=== PATIENT | female | born 1960 | race Caucasian/White ===

== ENCOUNTER 2018-05-09 19:00 | Emergency (ER) | payer SELFPAY ==
[2018-05-09] MEDS ORDERED: BABY ASPIRIN 81 MG CHEW PO ONE (19:26)
--- NOTE | 2018-05-09 19:32 | ERPHSYRPT ---
- History of Present Illness Time Seen by Provider: 05/09/18 19:19 Source: patient Exam Limitations: no limitations Patient Subjective Stated Complaint: Chest pain/Abnormal labs Triage Nursing Assessment: Patient ambulated back to ED and transferred self to bed. Patient A+O X 3. Patient sent to ER after family dr Amee Mott did labs and they were abnormal. Her D Dimer was elevated. Patient complains of chest pain 11/09. Lungs clear a/p mitra. Heart tones audible, Skin pink, warm and dry. Physician History: 58-year-old white female who states that she's been having pain in her anterior chest described as a squeezing located in the upper sternal region associated with shortness of breath and nausea apparently had of been seen by her family doctor and had labs ordered at 5:00 this afternoon. Patient with the above symptoms. Patient with a mildly increased d-dimer of 583. Past medical history includes diverticulitis. Past surgical history includes hysterectomy, colon resection, ostomy with revision Social history occasional alcohol use no illicit drug use no tobacco use Timing/Duration: week(s) (3 weeks) Severity: moderate Modifying Factors: Improves With: nothing Associated Symptoms: nausea, shortness of breath, cough (occasional cough), No vomiting, No abdominal pain, No heartburn, No diaphoresis, No chills, No chest pain, No fever, No headaches, No loss of appetite, No malaise, No rash, No syncope, No seizure, No weakness Allergies/Adverse Reactions: acetaminophen [From Darvocet-N] Allergy (Verified 05/09/18 19:17) propoxyphene [From Darvocet-N] Allergy (Verified 05/09/18 19:17) Home Medications: Aspirin 81 gm Chew [Baby Aspirin 81 mg Chew] 81 mg PO DAILY 05/09/18 [ History] Turmeric Root Extract [Turmeric Curcumin] 500 mg PO DAILY 05/09/18 [History] Hx Tetanus, Diphtheria Vaccination/Date Given: No Hx Influenza Vaccination/Date Given: No Hx Pneumococcal Vaccination/Date Given: No Immunizations Up to Date: Yes - Review of Systems Constitutional: No Fever, No Chills Eyes: No Symptoms Ears, Nose, & Throat: No Symptoms Respiratory: Cough, Dyspnea, No Cyanosis, No Dyspnea on Exertion ([place]), No Stridor, No Wheezing Cardiac: Chest Pain, No Edema, No Palpitations, No Syncope, No Orthopnea, No PND Abdominal/Gastrointestinal: Nausea, No Abdominal Pain, No Vomiting, No Diarrhea , No Constipation, No Hematemesis, No Hematochezia, No Melena, No Dysphagia, No Appetite Changes Genitourinary Symptoms: No Dysuria Musculoskeletal: No Back Pain, No Neck Pain Skin: No Rash Neurological: No Dizziness, No Focal Weakness, No Sensory Changes Psychological: No Symptoms Endocrine: No Symptoms All Other Systems: Reviewed and Negative - Past Medical History Pertinent Past Medical History: No Neurological History: No Pertinent History ENT History: No Pertinent History Cardiac History: No Pertinent History Respiratory History: No Pertinent History Musculoskeletal History: No Pertinent History GI Medical History: No Pertinent History History: No Pertinent History Psycho-Social History: No Pertinent History Female Reproductive Disorders: No Pertinent History - Past Surgical History Past Surgical History: Yes Neuro Surgical History: No Pertinent History Cardiac: No Pertinent History Respiratory: No Pertinent History Gastrointestinal: No Pertinent History, Bowel Surgery Genitourinary: No Pertinent History Female Surgical History: Hysterectomy Other Surgical History: Colon resection X 3 in 2012 - Social History Smoking Status: Never smoker Exposure to second hand smoke: No Drug Use: none Patient Lives Alone: No - Female History Hx Last Menstrual Period: Menopausal Hx Now: No - Nursing Vital Signs Nursing Vital Signs: Initial Vital Signs Temperature 98.0 F 05/09/18 19:05 Pulse Rate 66 05/09/18 19:05 Respiratory Rate 18 05/09/18 19:05 Blood Pressure 163/87 05/09/18 19:05 O2 Sat by Pulse Oximetry 99 05/09/18 19:05 Pain Scale Pain Intensity 7 - Physical Exam General Appearance: no apparent distress, alert Eye Exam: PERRL/EOMI, eyes nml inspection Ears, Nose, Throat Exam: normal ENT inspection, TMs normal, pharynx normal, moist mucous membranes Neck Exam: normal inspection, non-tender, supple, full range of motion Respiratory Exam: normal breath sounds, lungs clear, No respiratory distress Cardiovascular Exam: regular rate/rhythm, normal heart sounds, normal peripheral pulses, capillary refill <2 sec (given to work) Gastrointestinal/Abdomen Exam: soft, normal bowel sounds, No tenderness, No mass Back Exam: normal inspection, normal range of motion, No CVA tenderness, No vertebral tenderness Extremity Exam: normal inspection, normal range of motion, pelvis stable Neurologic Exam: alert, oriented x 3, cooperative, block trader II-XII nml as tested, normal mood/affect, nml cerebellar function, nml station & gait, sensation nml, No motor deficits Skin Exam: normal color, warm, dry, No rash SpO2 Interpretation: normal (99%) SpO2: 99 Oxygen Delivery: Room Air - Course Nursing assessment & vital signs reviewed: Yes EKG Interpreted by Me: RATE (66 bpm), Sinus Rhythm, NORMAL AXIS, Other (EKG: Sinus rhythm, 66 bpm, normal axis, no acute ST or T wave changes, essentially normal EKG) - Radiology Exams Chest X-ray Interpretation: Interpreted by me (No acute disease process noted), Negative, No Pneumonia, No Pneumothorax - CT Exams Chest CT Interpretation: Discussed w/radiologist (CT chest: No comparisons. Negative PE. No acute findings. Incidental azygous lobe and tiny right renal cyst.) Ordered Tests: Active Orders 24 hr Category Date Time Status EKG-ER Only STAT Care 05/09/18 21:43 Active CHEST WITH CONTRAST [CT] Stat Exams 05/09/18 19:27 Taken AMYLASE Stat Lab 05/09/18 17:00 Completed LIPASE Stat Lab 05/09/18 17:00 Completed TROPONIN Q3H Lab 05/09/18 17:00 Completed TROPONIN Q3H Lab 05/09/18 20:55 Completed TROPONIN Q3H Lab 05/10/18 01:30 Ordered TROPONIN Q3H Lab 05/10/18 04:30 Ordered TROPONIN Q3H Lab 05/10/18 07:30 Ordered Medication Summary Discontinued Medications Generic Name Dose Route Start Last Admin Trade Name Semaj PRN Reason Stop Dose Admin Aspirin 243 mg 05/09/18 19:26 05/09/18 19:51 Baby Aspirin 81 Mg Chew PO 05/09/18 19:27 243 mg STAT ONE Administration Aspirin Confirm 05/09/18 19:36 Baby Aspirin 81 Mg Chew Administered 05/09/18 19:37 Dose 243 mg .ROUTE .STK-MED ONE Lab/Rad Data: Laboratory Results 05/09/18 05/09/18 05/09/18 Range/Units 20:55 17:00 17:00 Troponin I < 0.012 < 0.012 (0.000-0.034) ng/mL Amylase 72 (30-110) U/L Lipase 51 (23-300) U/L - Progress Progress: improved Progress Note: 05/09/18 21:43 58-year-old white female arrives with complaint of 3 weeks of tightness in her left upper sternal region. Patient has had shortness of breath and nausea in the past with this pain. Patient with a mildly elevated d-dimer which was obtained by her family doctor patient's chemistry CBC were essentially normal. Chest x-ray ordered by her doctor earlier today no acute disease process noted. CT of the patient's chest negative for pulmonary embolism there is an incidental azygous lobe and tiny right renal cyst. Patient's vitals are stable. Patient's chemistry obtained prior to arrival to the ER essentially normal CBC normal patient's troponin first one obtained at 1700 normal second time 3 hours later in the emergency room is negative. Patient states she has a slight twinge of pain in her upper sternal area she states this is same pain that she's had for 3 weeks. I've offered to contact the hospital physician wet cotton feeder and consider placement on observation patient does not want this. And she wants to go home she does have 2 troponins which are normal a CT that does not show any pulmonary embolism there is no pneumothorax. Labs are otherwise normal with the exception of a mildly elevated d-dimer. Will obtain repeat EKG discharge with patient to follow-up with her family doctor if this has not changed. Patient has been instructed that she needs to return if she has any problems. 05/09/18 21:46 Patient did take one 81 mg aspirin at home. I have given her 243 mg aspirin here in the emergency room. 05/09/18 21:58 Second EKG done May 09, 2018 9:49 PM Sinus rhythm 63 bpm normal axis no acute ST or T wave changes. Normal EKG. - Departure Time of Disposition: 21:59 Departure Disposition: Home Clinical Impression: Chest pain Qualifiers: Chest pain type: unspecified Qualified Code(s): R07.9 - Chest pain, unspecified Condition: Fair Critical Care Time: No Referrals: AMEE MOTT MD [Primary Care Provider] - Additional Instructions: Return home. Rest. Follow-up with your family doctor call in the morning to arrange follow-up. Return for acute distress or for severe symptoms or for any problems.
[2018-05-09] MEDS ORDERED: BABY ASPIRIN 81 MG CHEW ONE (19:36)
[2018-05-09 19:37] LABS: AMYLASE 72 U/L (30-110); LIPASE 51 U/L (23-300)
[2018-05-09 22:07] VITALS: BP 115/70; PULSE 76; O2SAT 98
--- NOTE | 2018-05-10 08:42 | XRAY ---
Indication: Chest pain. Elevated d-dimer. Multiple contiguous axial images obtained through the chest using 80 cc Isovue 370 contrast and PE protocol. Comparison: None There is good opacification of the pulmonary arteries to include the lobar and segmental branches. No filling defect or pulmonary embolus. Heart is not enlarged. Aorta is normal in course and caliber. Right hilar chunky calcified nodes. No pathologic mediastinal/hilar lymphadenopathy. Examination of the lung parenchyma demonstrates mild bilateral dependent atelectasis. Anatomic variant for azygos lobe. No suspicious pulmonary mass, infiltrate, or effusion. Bony thorax intact. Limited upper abdomen demonstrates a 5 mm right upper renal cyst. Impression: 1. Negative pulmonary embolus. No acute cardiopulmonary abnormalities. 2. Incidental tiny right renal cyst and evidence for old granulomatous disease. CT DI 20.92
== END 2018-05-09 22:10 | disposition home or self-care (01) ==
LOC: ED 19:00
DX: R07.9 Chest pain, unspecified (principal); R79.1 Abnormal coagulation profile; R06.02 Shortness of breath; R11.0 Nausea; Z79.899 Other long term (current) drug therapy
CPT/HCPCS: 36415; 71260; 82150; 83690; 84484; 93005; 99284; A9270-GY